=== PATIENT | female | born 1990 | race Caucasian/White ===

== ENCOUNTER 2016-07-27 02:51 | Emergency (ER) | payer SELFPAY ==
[2016-07-27 04:05] LABS: APPEARANCE,URINE CLOUDY; BILIRUBIN,URINE NEGATIVE (NEGATIVE); CALCIUM OXALATE CRYSTALS,URINE FEW /HPF; GLUCOSE, URINE NEGATIVE (NEGATIVE); KETONES,URINE NEGATIVE (NEGATIVE); LEUKOCYTE ESTERASE,URINE NEGATIVE (NEGATIVE); NITRITE,URINE NEGATIVE (NEGATIVE); PROTEIN,URINE NEGATIVE (NEGATIVE); URINE SPECIFIC GRAVITY 1.026
[2016-07-27] MEDS ORDERED: NORMAL SALINE 1000 ML 1,000 ML IV PRN (07:23)
[2016-07-27] MEDS ORDERED: ONDANSETRON HCL INJ/PF 4 MG/2 ML SDV IV ONE (07:28)
[2016-07-27] MEDS ORDERED: PROCHLORPERAZINE EDISYLATE INJ 10 MG/2 ML VIAL IV ONE (07:28)
[2016-07-27] MEDS ORDERED: KETOROLAC TROMETHAMINE INJ/PF 30 MG/1 ML SDV IV ONE (07:29)
--- NOTE | 2016-07-27 08:03 | ER Document Report ---
ED General - General Chief Complaint: Flank Pain Stated Complaint: FLANK PAIN,LOWER BACK PAIN,HEADACHE TRAVEL OUTSIDE OF THE [place] IN LAST 30 DAYS: No - HPI Patient complains to provider of: bilateral flank pain Notes: Patient presents with bilateral flank pain. Patient states she believes she is developing a kidney infection. Patient also states she has a headache. Patient states migraine for last few days similar to migraines in the past no change. Patient denies fevers chills nausea vomiting diarrhea. Patient denies any trauma. Patient denies history kidney stones states that she is currently on her menstrual cycle. - Related Data Allergies/Adverse Reactions: No Known Allergies Allergy (Verified 04/17/13 23:24) Past Medical History - Social History Smoking Status: Unknown if Ever Smoked Family History: Reviewed & Not Pertinent Patient has suicidal ideation: No Patient has homicidal ideation: No Renal/ Medical History: Denies: Hx Peritoneal Dialysis - Immunizations Hx Diphtheria, Pertussis, Tetanus Vaccination: Yes Review of Systems - Review of Systems Constitutional: No symptoms reported EENT: No symptoms reported Cardiovascular: No symptoms reported Respiratory: No symptoms reported Gastrointestinal: No symptoms reported Genitourinary: Dysuria, Flank pain Female Genitourinary: No symptoms reported Musculoskeletal: No symptoms reported Skin: No symptoms reported Hematologic/Lymphatic: No symptoms reported Neurological/Psychological: No symptoms reported -: Yes All other systems reviewed and negative Physical Exam - Vital signs Vitals: Temp Pulse Resp BP Pulse Ox 98.4 F 110 H 18 127/80 H 97 07/27/16 02:56 07/27/16 02:56 07/27/16 02:56 07/27/16 02:56 07/27/16 02:56 Interpretation: Normal - General General appearance: Appears well, Alert - HEENT Head: Normocephalic, Atraumatic Eyes: Normal Pupils: PERRL - Respiratory Respiratory status: No respiratory distress Chest status: Nontender Breath sounds: Normal Chest palpation: Normal - Cardiovascular Rhythm: Regular Heart sounds: Normal auscultation Murmur: No - Abdominal Inspection: Normal Distension: No distension Bowel sounds: Normal Tenderness: Nontender Organomegaly: No organomegaly - Back Back: Normal, Nontender - Extremities General upper extremity: Normal inspection, Nontender, Normal color, Normal ROM , Normal temperature General lower extremity: Normal inspection, Nontender, Normal color, Normal ROM , Normal temperature, Normal weight bearing. No: Simone's sign - Neurological Neuro grossly intact: Yes Cognition: Normal Orientation: AAOx4 Adam Coma Scale Eye Opening: Spontaneous [place] Coma Scale Verbal: Oriented Adam Coma Scale Motor: Obeys Commands Adam Coma Scale Total: 15 Speech: Normal Motor strength normal: LUE, RUE, LLE, RLE Sensory: Normal - Psychological Associated symptoms: Normal affect, Normal mood - Skin Skin Temperature: Warm Skin Moisture: Dry Skin Color: Normal Course - Re-evaluation Re-evalutation: 07/27/16 15:28 Patient headache improved. Patient's workup does not show any signs of urinary tract infection pyelonephritis CT scan was performed also showing signs of kidney stone. More likely symptoms are due to the patient's mental cycle. Patient was given medications for her headaches Bentyl for abdominal pain. Patient will be discharged home follow-up primary care physician - Vital Signs Vital signs: Temp Pulse Resp BP Pulse Ox 97.4 F 88 16 111/60 98 07/27/16 09:45 07/27/16 09:45 07/27/16 09:45 07/27/16 09:45 07/27/16 09:45 - Laboratory Result Diagrams: 07/27/16 08:30 Laboratory results interpreted by me: 07/27/16 07/27/16 03:05 08:30 Chloride 113 H Carbon Dioxide 18 L Urine Blood LARGE H Urine Urobilinogen 2.0 H Discharge - Discharge Clinical Impression: Dehydration, Flank pain Headache Qualifiers: Headache type: unspecified Headache chronicity pattern: unspecified pattern Intractability: not intractable Qualified Code(s): R51 - Headache Condition: Good Disposition: HOME, SELF-CARE Instructions: Flank Pain ([facility]), Dehydration ([facility]), Headache ([facility]) Additional Instructions: Take medication as prescribed. Return to ER symptoms worsen. Follow-up with your primary care physician. You may take the Compazine and Zofran together if you developed another headache. He may also take Tylenol Motrin for your pain. He may also try the Bentyl to help you your pain as well. Prescriptions: Dicyclomine HCl [Bentyl 20 mg Tablet] 20 mg PO QID #40 tablet Ondansetron [Zofran Odt 4 mg Tablet] 4 mg PO Q6 #30 tab.rapdis Prochlorperazine Maleate [Compazine] 5 mg PO Q6 #30 tablet Forms: Return to Work
[2016-07-27 09:18] LABS: ALANINE AMINOTRANSFERASE 27 U/L (9-52); ALBUMIN 3.7 g/dL (3.5-5.0); ALKALINE PHOSPHATASE 59 U/L (38-126); ANION GAP 13 (5-19); ASPARTATE AMINO TRANSFERASE 15 U/L (14-36); BILIRUBIN,DIRECT 0.2 mg/dL (0.0-0.4); BILIRUBIN,TOTAL 0.6 mg/dL (0.2-1.3); BLOOD UREA NITROGEN 11 mg/dL (7-20); CALCIUM 8.6 mg/dL (8.4-10.2); CARBON DIOXIDE 18 mmol/L (22-30); CHLORIDE 113 mmol/L (98-107); CREATININE RESULT 1.03 mg/dL (0.52-1.25); GLUCOSE 97 mg/dL (75-110); SODIUM 143.5 mmol/L (137-145); TOTAL PROTEIN 6.6 g/dL (6.3-8.2)
[2016-07-27 09:49] VITALS: BP 111/60
== END 2016-07-27 09:45 | disposition home or self-care (01) ==
LOC: ER 02:51
DX: E86.0 Dehydration (principal); R10.9 Unspecified abdominal pain; R51 Headache; M54.5 Low back pain
CPT/HCPCS: 99284; 96361; 96374; 96375; 36415; 81025; 80053; 81001; 76380; J1885; J0780; J2405; J7030

== ENCOUNTER 2017-09-23 09:21 | Observation (INO) | payer SELFPAY ==
[2017-09-23] MEDS ORDERED: ACETAMINOPHEN 325 MG TABLET PO ONE (10:33)
[2017-09-23] MEDS ORDERED: ONDANSETRON 4 MG TAB.RAPDIS PO ONE (10:33)
--- NOTE | 2017-09-23 10:38 | ER Document Report ---
ED Medical Screen (RME) - General Chief Complaint: Rectal Abscess Stated Complaint: POSSIBLE ABSCESS Time Seen by Provider: 09/23/17 10:27 Notes: RAPID MEDICAL EVALUATION DISCLOSURE I have seen this patient as part of a Rapid Medical Evaluation and, if applicable, placed any initially appropriate orders. The patient will be seen and fully evaluated, including a full history and physical exam, by a provider ( in Main ED or Fast Track) when a room becomes available. 26-year-old female here with complaints of abscess between her vagina and rectum. Started several days ago but progressively worsening. Has tried ibuprofen with minimal relief. Has a history of abscess on her thighs but never in this area. 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 TRAVEL OUTSIDE OF THE [place] IN LAST 30 DAYS: No - Related Data Allergies/Adverse Reactions: No Known Allergies Allergy (Verified 09/23/17 09:22) Past Medical History - Social History Chew tobacco use (# tins/day): No Frequency of alcohol use: Occasional Drug Abuse: Marijuana Renal/ Medical History: Denies: Hx Peritoneal Dialysis - Immunizations Hx Diphtheria, Pertussis, Tetanus Vaccination: Yes Physical Exam - Vital signs Vitals: Temp Pulse Resp BP Pulse Ox 98.9 F 102 H 14 115/79 96 09/23/17 09:25 09/23/17 09:25 09/23/17 09:25 09/23/17 09:25 09/23/17 09:25 Course - Vital Signs Vital signs: Temp Pulse Resp BP Pulse Ox 98.9 F 102 H 14 115/79 96 09/23/17 09:25 09/23/17 09:25 09/23/17 09:25 09/23/17 09:25 09/23/17 09:25
[2017-09-23 11:14] LABS: ABSOLUTE EOSINOPHILS # (AUTO) 0.1 10^3/uL (0.0-0.6); ABSOLUTE LYMPHOCYTES (AUTO) 1.5 10^3/uL (0.5-4.7); ABSOLUTE MONOCYTES (AUTO) 0.9 10^3/uL (0.1-1.4); ABSOLUTE NEUT (AUTO) 15.7 10^3/uL (1.7-8.2); BASOPHILS % (AUTO) 0.2 % (0-2); EOSINOPHILS % (AUTO) 0.8 % (0-6); HEMATOCRIT 44.3 % (36.0-47.0); HEMOGLOBIN 15.2 g/dL (12.0-15.5); LYMPHOCYTES % (AUTO) 8.4 % (13-45); MEAN CORPUSCULAR HEMOGLOBIN 31.3 pg (27.0-33.4); MEAN CORPUSCULAR HGB CONC 34.3 g/dL (32.0-36.0); MEAN CORPUSCULAR VOLUME 91 fl (80-97); MONOCYTES % (AUTO) 5.1 % (3-13); PLATELET COUNT 241 10^3/uL (150-450); RED BLOOD COUNT 4.85 10^6/uL (3.72-5.28); RED CELL DISTRIBUTION WIDTH 13.7 % (11.5-14.0); SEGMENTED NEUTROPHILS % (AUTO) 85.5 % (42-78); TOTAL CELLS COUNTED % (AUTO) 100 %; WHITE BLOOD COUNT 18.4 10^3/uL (4.0-10.5)
[2017-09-23 11:32] LABS: ALANINE AMINOTRANSFERASE 24 U/L (9-52); ALBUMIN 4.4 g/dL (3.5-5.0); ALKALINE PHOSPHATASE 71 U/L (38-126); ANION GAP 14 (5-19); ASPARTATE AMINO TRANSFERASE 17 U/L (14-36); BILIRUBIN,DIRECT 0.3 mg/dL (0.0-0.4); BILIRUBIN,TOTAL 0.7 mg/dL (0.2-1.3); BLOOD UREA NITROGEN 11 mg/dL (7-20); CALCIUM 9.4 mg/dL (8.4-10.2); CARBON DIOXIDE 25 mmol/L (22-30); CHLORIDE 104 mmol/L (98-107); GLUCOSE 129 mg/dL (75-110); SODIUM 143.3 mmol/L (137-145); TOTAL PROTEIN 7.7 g/dL (6.3-8.2)
[2017-09-23] MEDS ORDERED: PIPERACILLIN/TAZOBACTAM 4.5 GM VIAL IV ONE (12:10)
[2017-09-23] MEDS ORDERED: ONDANSETRON HCL INJ/PF 4 MG/2 ML SDV IV ONE (12:20)
[2017-09-23] MEDS ORDERED: FENTANYL CITRATE INJ/PF 100 MCG/2 ML AMPUL IV ONE ×2 (12:20→16:14)
--- NOTE | 2017-09-23 12:26 | ER Document Report ---
ED GI Bleed / Rectal Pain - General Chief Complaint: Rectal Abscess Stated Complaint: POSSIBLE ABSCESS Time Seen by Provider: 09/23/17 10:27 Mode of Arrival: Ambulatory Information source: Patient Notes: Chief complaint: Perianal abscess History of complain:( obtained from----patient) 26 years old female presents today with pain and swelling over the left gluteal region with purulent discharge per rectum and rectal pain and unable to defecate. This is been going on for the last few days. Had fever and chills on and off. Onset: As above Duration: Gradual Severity: Severe Quality: Sharp Context: Abscess Exacerbating factor and relieving factors: Any change of position REVIEW OF SYSTEMS: CONSTITUTIONAL : Denies fever, chills, or sweats. Denies recent illness. EENT: Denies eye, ear, throat, or mouth pain or symptoms. Denies nasal or sinus congestion or discharge. Denies throat, tongue, or mouth swelling or difficulty swallowing. CARDIOVASCULAR: Denies chest pain. Denies palpitations or racing or irregular heart beat. Denies ankle edema. RESPIRATORY: Denies cough, cold, or chest congestion. Denies shortness of breath, difficulty breathing, or wheezing. GASTROINTESTINAL: Denies distention. Denies nausea, vomiting, or diarrhea. Denies blood in vomitus, stools, or per rectum. Denies black, tarry stools. Denies constipation. GENITOURINARY: Denies difficulty urinating, painful urination, burning, frequency, blood in urine, or discharge. FEMALE GENITOURINARY: Denies vaginal bleeding, heavy or abnormal periods, irregular periods. Denies vaginal discharge or odor. MUSCULOSKELETAL: Denies back or neck pain or stiffness. Denies joint pain or swelling. SKIN: Denies rash, lesions or sores. HEMATOLOGIC : Denies easy bruising or bleeding. LYMPHATIC: Denies swollen, enlarged glands. NEUROLOGICAL: Denies confusion or altered mental status. Denies passing out or loss of consciousness. Denies dizziness or lightheadedness. Denies headache. Denies weakness or paralysis or loss of use of either side. Denies problems with gait or speech. Denies sensory loss, numbness, or tingling. Denies seizures. PSYCHIATRIC: Denies anxiety or stress. Denies depression, suicidal ideation, or homicidal ideation. ALL OTHER SYSTEMS REVIEWED AND NEGATIVE. PHYSICAL EXAMINATION: GENERAL: Well-appearing, well-nourished and in no acute distress. HEAD: Atraumatic, normocephalic. EYES: Pupils equal round and reactive to light, extraocular movements intact, conjunctiva are normal. ENT: Nares patent, oropharynx clear without exudates. Moist mucous membranes. NECK: Normal range of motion, supple without lymphadenopathy LUNGS: Breath sounds clear to auscultation bilaterally and equal. No wheezes rales or rhonchi. HEART: Regular rate and rhythm without murmurs ABDOMEN: Soft, nontender, nondistended abdomen. No guarding, no rebound. No masses appreciated. Examination of the rectum-there were no perianal swelling noted but just lateral to the millimeters on the left side of the perineal region and the gluteal region there is a large area of erythema which is warm indurated and tender. Examination of genitals-deferred Musculoskeletal: Normal range of motion, no pitting or edema. No cyanosis. NEUROLOGICAL: Cranial nerves grossly intact. Normal speech, normal gait. Normal sensory, motor exams PSYCH: Normal mood, normal affect. SKIN: Warm, Dry, normal turgor, no rashes or lesions noted. Dictation was performed using [employer] voice recognition software TRAVEL OUTSIDE OF THE [place] IN LAST 30 DAYS: No - Related Data Allergies/Adverse Reactions: No Known Allergies Allergy (Verified 09/23/17 09:22) Past Medical History - Social History Smoking Status: Current Every Day Smoker Chew tobacco use (# tins/day): No Frequency of alcohol use: Occasional Drug Abuse: Marijuana Family History: Reviewed & Not Pertinent Patient has suicidal ideation: No Patient has homicidal ideation: No Renal/ Medical History: Denies: Hx Peritoneal Dialysis - Immunizations Hx Diphtheria, Pertussis, Tetanus Vaccination: Yes Review of Systems - Review of Systems Notes: Dictated Physical Exam - Vital signs Vitals: Temp Pulse Resp BP Pulse Ox 98.9 F 102 H 14 115/79 96 09/23/17 09:25 09/23/17 09:25 09/23/17 09:25 09/23/17 09:25 09/23/17 09:25 - Notes Notes: Dictated Course - Re-evaluation Re-evalutation: 09/23/17 15:07 Patient denies to be on n.p.o., discussed the case with surgical history and currently being admitted to his service. - Vital Signs Vital signs: Temp Pulse Resp BP Pulse Ox 98.9 F 102 H 14 115/79 96 09/23/17 09:25 09/23/17 09:25 09/23/17 09:25 09/23/17 09:25 09/23/17 09:25 - Laboratory Result Diagrams: 09/23/17 10:59 09/23/17 10:59 Laboratory results interpreted by me: 09/23/17 09/23/17 10:59 10:59 WBC 18.4 H Seg Neutrophils % 85.5 H Lymphocytes % 8.4 L Absolute Neutrophils 15.7 H Glucose 129 H Discharge - Discharge Clinical Impression: Abscess of multiple sites of perineum Condition: Fair Disposition: ADMITTED INPATIENT Admitting Provider: Surgicalist Unit Admitted: Surgical Floor
--- NOTE | 2017-09-23 14:46 | RADIOLOGY REPORT (SQ) ---
EXAM DESCRIPTION: CT PELVIS WITH COMPLETED DATE/TIME: 09/23/2017 2:05 pm REASON FOR STUDY: Perianal abscess COMPARISON: Abdominal and pelvic CT scan dated June 2016 TECHNIQUE: CT scan of the pelvis performed with intravenous contrast. 92 mL of Isovue 3 7 would uti lize as the contrast agent. Images reviewed with soft tissue and bone windows. Reconstructed jean baptiste l and sagittal MPR images reviewed. All images stored on PACS. All CT scanners at this facility use dose modulation, iterative reconstruction, and/or weight based d osing when appropriate to reduce radiation dose to as low as reasonably achievable (ALARA). [facility]: Dose Right [facility]: CareDose [facility]: Dose Right [facility]: Teradose 4D [facility]: Meal Ticket RADIATION DOSE: CT Rad equipment meets quality standard of care and radiation dose reduction techniq ues were employed. CTDIvol: 13.8 - 17.4 mGy. DLP: 1266 mGy-cm. mGy. LIMITATIONS: None. FINDINGS: PELVIC BONES: No acute fracture. No worrisome bone lesions. VISUALIZED SPINE: No acute findings. HIP(S): No acute fracture or dislocation. No worrisome bone lesions. PELVIC SOFT TISSUES: No significant findings. EXTRAPELVIC SOFT TISSUES: A well demarcated thick walled complex fluid collection is identified exten ding inferiorly from the perianal region to the left of midline measuring 5.3 cm in cephalocaudal xiomy meter, 1.7 cm in transverse diameter, and 2.9 cm in AP diameter consistent with an abscess collection . There are edematous or inflammatory changes in the adjacent subcutaneous fat. OTHER: No other significant finding. IMPRESSION: Findings consistent with an abscess collection extending inferiorly from the perianal re gion to the left of midline as noted above. There are associated edematous or inflammatory changes i n the adjacent subcutaneous fat. No other significant pelvic abnormalities were identified. Other f indings as noted above TECHNICAL DOCUMENTATION: JOB ID: [id number] Quality ID # [id number]: Final reports with documentation of one or more dose reduction techniques (e.g., Au tomated exposure control, adjustment of the mA and/or kV according to patient size, use of iterative reconstruction technique) 2010 [employer]- All Rights Reserved Reading location - IP/workstation name: [email or web address]
[2017-09-23] MEDS ORDERED: SUCCINYLCHOLINE CHLORIDE INJ 200 MG/10 ML VIAL ONE (15:00)
[2017-09-23] MEDS ORDERED: FENTANYL CITRATE INJ/PF 100 MCG/2 ML AMPUL ONE (16:47)
[2017-09-23] MEDS ORDERED: PROPOFOL INJ 200 MG/20 ML VIAL IV ONE (16:48)
[2017-09-23] MEDS ORDERED: ACETAMINOPHEN 1,000 MG/100 ML RTUPB IV ONE (16:48)
[2017-09-23] MEDS ORDERED: DEXAMETHASONE SOD PHOSPHATE INJ 4 MG/1 ML VIAL ONE ×2 (16:48→18:22)
[2017-09-23] MEDS ORDERED: MIDAZOLAM 2 MG/2 ML INJ ONE (16:48)
[2017-09-23] MEDS ORDERED: LIDOCAINE 0.5% INJ-PF (5 MG/ML) 50 ML SDV ONE (16:50)
[2017-09-23] MEDS ORDERED: MEPERIDINE HCL/PF INJ 25 MG/1 ML DISP.SYRIN IV PRN (16:54)
[2017-09-23] MEDS ORDERED: FENTANYL CITRATE INJ/PF 100 MCG/2 ML AMPUL IV PRN ×3 (16:54)
[2017-09-23] MEDS ORDERED: DIPHENHYDRAMINE HCL 50 MG/ML VIAL IV PRN (16:54)
[2017-09-23] MEDS ORDERED: ONDANSETRON HCL INJ/PF 4 MG/2 ML SDV IV PRN ×2 (16:54→18:38)
[2017-09-23] MEDS ORDERED: MORPHINE SULFATE 10 MG/ML INJ IV PRN (16:54)
[2017-09-23] MEDS ORDERED: PROMETHAZINE HCL INJ 25 MG/1 ML VIAL IV PRN ×2 (16:54)
[2017-09-23] MEDS ORDERED: CEFAZOLIN INJ 1 GM VIAL ONE (17:23)
--- NOTE | 2017-09-23 18:35 | OPERATIVE REPORT E ---
Operative Report NAME: RAMY VELASQUEZ : 1990 AGE: 26Y DATE OF SURGERY: 09/23/2017 ROOM: ED16 PREOPERATIVE DIAGNOSIS: Left perianal abscess with possible anal fistula. POSTOPERATIVE DIAGNOSIS: Anal fistula with abscess. PROCEDURE: Incision and drainage and fistulotomy. SURGEON: JENNYFER BARRETT M.D. ANESTHESIA: General. INDICATION: This is a 26-year-old female who developed about 3 days' duration of pain in the left perianal area. The patient went to the emergency department and was noted to have inflammation along the left perianal area. The patient claims she would notice pus coming of the rectal side when the inflammation is pressed. DESCRIPTION OF PROCEDURE: After adequate general anesthesia, the patient was placed in the lithotomy position and the perianal area prepped and draped in the usual sterile fashion. Appropriate timeout was then called. Next, the swelling along the left perianal area was then pushed and there was pus coming out of the rectal area in the left anterior aspect quite close to the cutaneous site. Next a probe was placed at this area on the rectal site and noted to come out through the *------* area on the skin about 2.5 cm anterolaterally. The counter incision made at the end of the probe on the skin and the obvious fistula was then opened with the use of cautery. Part of the fistula pseudosac was removed with the use of cautery. Hemostasis was obtained with cautery. The area was then irrigated and hemostasis further obtained with cautery. Initial cultures were obtained. Next, the area was then packed with 1/4 inch Iodoform gauze. Part of the superficial muscle was incised with a fistulotomy. At this time hemostasis noted. The area was then packed with 1/4 inch iodoform gauze. Xylocaine 0.5% was injected on the operating site using 10 mL. The patient tolerated the procedure well. Brought to recovery in satisfactory condition. Needle, instrument, and sponge count were all correct. Estimated blood loss about 10 mL. Patient then brought to the recovery room in satisfactory condition. DICTATING PHYSICIAN: JENNYFER BARERTT M.D. DICTATING PHYSICIAN: JENNYFER BARRETT M.D. [id number] PHY#: [id number] ID: [id number] JOB#: [id number] ACCT: [id number] cc:JENNYFER BARRETT M.D. >
[2017-09-23] MEDS ORDERED: NORMAL SALINE 1000 ML 1,000 ML IV PRN (18:40)
[2017-09-23] MEDS ORDERED: WATER IV ONE (18:45)
[2017-09-23] MEDS ORDERED: DEXAMETHASONE SOD PHOSPHATE IV ONE (18:45)
[2017-09-23] MEDS ORDERED: DEXTROSE 5% IV ONE (18:45)
[2017-09-23 19:24] VITALS: BP 108/74
[2017-09-23] MEDS ORDERED: PIPERACILLIN SODIUM/TAZOBACTAM 3.375 GM in NORMAL SALINE 100 ML IV SCH (21:00)
[2017-09-23] MEDS ORDERED: KETOROLAC TROMETHAMINE INJ/PF 30 MG/1 ML SDV IV SCH (22:00)
[2017-09-24] MEDS ORDERED: PIPERACILLIN/TAZOBACTAM 3.375 GM VIAL IV SCH
[2017-09-24] MEDS ORDERED: ACETAMINOPHEN 1,000 MG/100 ML RTUPB IV SCH (02:00)
--- NOTE | 2017-09-24 11:00 | DISCHARGE SUMMARY E ---
Discharge Summary NAME: RAMY VELASQUEZ : 1990 AGE: 26Y ADMITTED: 09/23/2017 DISCHARGED: 09/23/2017 FINAL DIAGNOSIS: Anal fistula with abscess. PROCEDURE: Incision and drainage and fistulotomy 09/23/17. SURGEON: Jennyfer Fuller M.D. HOSPITAL COURSE: This is a 26-year-old female who developed pain in the left perianal area for the past 3 days prior to admission. She was seen in the ED and noted to have a perianal abscess, and therefore brought to the OR. She was noted to have an abscess with anal fistula. The abscess was drained, and fistulotomy performed on 09/23/17, which she tolerated well. She was then discharged improved on later that night on 09/23/17 with a final diagnosis of perianal abscess with anal fistula. She was given a prescription for Cipro 500 mg p.o. twice a day for the next 5 days, and prescription for Toradol 10 mg p.o. q. 8 hours p.r.n. for pain. She was also advised to start sitz baths tomorrow about 4 times a day. Instructions were also given for the patient to go to the surgical clinic in 2 days for removal of packing. DICTATING PHYSICIAN: JENNYFER FULLER M.D. [id number] PABLOY#: [id number] ID: [id number] JOB#: [id number] ACCT: [id number] cc: >
== END 2017-09-23 21:53 | disposition home or self-care (01) ==
LOC: ER 09:21 → INTOOBSV 15:21 → EH 15:21 → 4S 18:35
PROVIDERS: ADMIT Surgery; ATTEND Surgery
PROC: 0H89XZZ Division of Perineum Skin, External Approach (ICD-10-PCS; 2017-09-23)
PROC: 0D9QXZZ Drainage of Anus, External Approach (ICD-10-PCS; principal; 2017-09-23 17:30)
DX: K61.0 Anal abscess (principal); F17.200 Nicotine dependence, unspecified, uncomplicated; F12.10 Cannabis abuse, uncomplicated
CPT/HCPCS: 46050; 46270; 96376; 99285; 96375; 96365; 36415; 87040; 87070; 87205; 85025; 87075; 87077; 80053; 72193; G0378 ×2; A6266; J2250; J0690; J1100; S0119; J3010; J3490; J1885; J0330; J7030; J2704; J2543 ×2; J0131; 902